=== PATIENT | female | born 1985 | race Caucasian/White ===

== ENCOUNTER 2017-12-01 03:45 | Emergency (ER) | payer BC ==
[2017-12-01] MEDS ORDERED: Ketorolac INJ* 30 MG/ML 1 ML VIAL IV PUSH ONE (04:20)
[2017-12-01] MEDS ORDERED: NS 0.9% 1000 ML* 1,000 ML IV ONE (04:20)
[2017-12-01] MEDS ORDERED: Metoclopramide IV* 5 MG/ML 2 ML VIAL IV SLOW PU ONE (04:21)
[2017-12-01] MEDS ORDERED: Morphine INJ* 4 MG/ML 1 ML SYRINGE (NEW SYRINGE VERSION) IV ONE (04:21)
[2017-12-01 05:00] LABS: ABS Basophils 0.1 10^3/ul (0-0.2); ABS Eosinophils 0.1 10^3/ul (0-0.6); ABS Lymphocytes 2.7 10^3/ul (1.0-4.8); ABS Monocytes 0.9 10^3/ul (0-0.8); ABS Neutrophils 5.9 10^3/ul (1.5-7.7); ABS Nucleated RBC 0 10^3/ul; Eosinophil % 1.2 % (0-6); Hematocrit 34 % (35-47); Hemoglobin 10.7 g/dl (12.0-16.0); Lymphocyte % 27.7 % (25-47); Mean Corpuscular HGB Conc 32 g/dl (31-36); Mean Corpuscular Hemoglobin 24 pg (27-31); Mean Corpuscular Volume 75 fL (80-97); Mean Platelet Volume 8 um3 (7.4-10.4); Nucleated Red Blood Cells % 0.1; Platelet Count 394 10^3/ul (150-450); Red Blood Count 4.45 10^6/ul (4.0-5.4); Red Cell Distribution Width 16 % (10.5-15); White Blood Count 9.8 10^3/ul (3.5-10.8)
[2017-12-01 05:12] LABS: Urine Appearance Cloudy; Urine Blood 2+ (Negative); Urine Color Yellow; Urine Ketones Negative (Negative); Urine Protein Negative (Negative); Urine Specific Gravity 1.026 (1.010-1.030); Urine Urobilinogen Negative (Negative)
[2017-12-01 05:16] LABS: EGFR Non-African American 81.3 (>60)
[2017-12-01] MEDS ORDERED: Levofloxacin TAB* 500 MG PO ONE (05:34)
[2017-12-01] MEDS ORDERED: Tamsulosin CAP* 0.4 MG PO ONE (05:34)
--- NOTE | 2017-12-01 05:47 | ED ---
Katiuska Simmons Abhishek, scribed for Marco Masterson MD on 12/01/17 at 0431 . Abdominal Pain/Female - HPI Summary HPI Summary: This patient is a 32 year old F presenting to [facility] accompanied by female friend with a chief complaint of abd pain since 129. Pt describes the pain as a LLQ that radiates to the left flank. The patient rates the pain 7/10 in severity. Symptoms aggravated by nothing. Symptoms alleviated by nothing. Patient reports vomiting. Patient denies dysuria, diarrhea and hematuria. - History of Current Complaint Chief Complaint: EDFlankPain Stated Complaint: FLANK PAIN Time Seen by Provider: 12/01/17 04:09 Hx Obtained From: Patient Onset/Duration: Sudden Onset, Lasting Hours - 12911/30/17 Timing: Constant Severity Initially: Moderate Severity Currently: Moderate Pain Intensity: 7 Pain Scale Used: 0-10 Numeric Location: Discrete At: LLQ Radiates: Yes Radiates to: Flank - Left Aggravating Factor(s): Nothing Alleviating Factor(s): Nothing Associated Signs and Symptoms: Positive: Nausea, Vomiting, Other: - Negative dysuria and hematuria. Negative: Diarrhea Allergies/Adverse Reactions: Allergies Allergy/AdvReac Type Severity Reaction Status Date / Time No Known Allergies Allergy Verified 12/01/17 03:52 PMH/Surg Hx/FS Hx/Imm Hx Endocrine/Hematology History: Denies: Hx Diabetes Cardiovascular History: Reports: Hx Hypertension Denies: Hx Cardiac Arrest, Hx Coronary Artery Disease Sensory History: Denies: Hx Legally Blind, Hx Deafness Opthamlomology History: Denies: Hx Legally Blind Infectious Disease History: No Infectious Disease History: Denies: Traveled Outside the [place] in Last 30 Days - Family History Known Family History: Negative: Cardiac Disease, Diabetes - Social History Occupation: Employed Full-time Lives: With Family Alcohol Use: Occasionally Substance Use Type: Reports: None Smoking Status (MU): Never Smoked Tobacco Review of Systems Constitutional: Negative Eyes: Negative ENT: Negative Cardiovascular: Negative Respiratory: Negative Positive: Abdominal Pain - LLQ, Vomiting, Nausea. Negative: Diarrhea Negative: dysuria, hematuria Musculoskeletal: Negative Skin: Negative Neurological: Negative Psychological: Normal All Other Systems Reviewed And Are Negative: Yes Physical Exam - Summary Physical Exam Summary: VITAL SIGNS: Reviewed. GENERAL: ~Patient is a well-developed and nourished (FEMALE) who is lying comfortable in the stretcher. Patient is not in any acute respiratory distress. HEAD AND FACE: No signs of trauma. No ecchymosis, hematomas or skull depressions. No sinus tenderness. EYES: PERRLA, EOMI x 2, No injected conjunctiva, no nystagmus. EARS: Hearing grossly intact. Ear canals and tympanic membranes are within normal limits. MOUTH: Oropharynx within normal limits. NECK: Supple, trachea is midline, no adenopathy, no JVD, no carotid bruit, no c- spine tenderness, neck with full ROM. CHEST: Symmetric, no tenderness at palpation LUNGS: Clear to auscultation bilaterally. No wheezing or crackles. CVS: Regular rate and rhythm, S1 and S2 present, no murmurs or gallops appreciated. ABDOMEN: Left mid side tenderness EXTREMITIES: FROM in all major joints, no edema, no cyanosis or clubbing. NEURO: Alert and oriented x 3. No acute neurological deficits. Speech is normal and follows commands. SKIN: Dry and warm Triage Information Reviewed: Yes Vital Signs On Initial Exam: Initial Vitals Temp Pulse Resp BP Pulse Ox 97.9 F 70 16 141/83 100 12/01/17 03:46 12/01/17 03:46 12/01/17 03:46 12/01/17 03:46 12/01/17 03:46 Vital Signs Reviewed: Yes Diagnostics - Vital Signs Vital Signs Temp Pulse Resp BP Pulse Ox 12/01/17 03:46 97.9 F 70 16 141/83 100 - Laboratory Result Diagrams: 12/01/17 04:40 12/01/17 04:40 Lab Statement: Any lab studies that have been ordered have been reviewed, and results considered in the medical decision making process. - CT CT A/P CT Interpretation Completed By: Radiologist - CT A/P reveals positive for 3 mm distal left ureteral stone at the left ureter vesicular junction which is obstructing and causing mild left hydro ureter and very mild left hydro nephrosis. There are also no obstructing left renal stones. No right urinary tract stone or obstruction. Note made of some free fluid in the pelvic cul-de- sac. Physiologic versus ruptured cyst. The remainder of the abdomen and pelvis is unremarkable. ED physician has reviewed this radiology report and agrees. Abdominal Pain Fem Course/Dx - Course Course Of Treatment: The pt is a 32 F presenting to the [facility] with a chief complaint of LLQ abd pain. The pt reports vomiting and nausea, however, denies dysuria, hematuria, and diarrhea. The pain is described to have radiated to towards the left flank and back. CT A/P was taken and reviewed. The dx will be renal colic, left ureteral stone, and UTI. The pt will be discharged home and is recommended to follow up with urologist within 2 to 3 days. - Diagnoses Provider Diagnoses: Left ureteral stone, Renal colic, UTI (urinary tract infection) Discharge - Discharge Plan Condition: Stable Disposition: ADMITTED TO [facility] Prescriptions: Levofloxacin TAB* [Levaquin TAB*] 500 mg PO DAILY #7 tab oxyCODONE/Acetamin 5/325 MG* [Percocet 5/325 TAB*] 1 tab PO Q6H PRN #14 tab MDD 4 PRN Reason: Pain Tamsulosin CAP* [Flomax CAP*] 0.4 mg PO BEDTIME #7 cap Patient Education Materials: Urinary Tract Infection in Women (ED), Renal Colic (ED), Ureteral Stones (ED) Referrals: Kinga Holbrook MD [Primary Care Provider] - Carter Saucedo MD [Medical Doctor] - (Follow up with Urologist within 2 to 3 days.) Additional Instructions: RETURN TO EMERGENCY DEPARTMENT FOR ANY NEW OR WORSENING SYMPTOMS The documentation as recorded by the Katiuska le Abhishek accurately reflects the service I personally performed and the decisions made by Aleja dias Abdul, MD.
[2017-12-01 06:28] VITALS: BP 113/84
--- NOTE | 2017-12-01 07:57 | RAD ---
INDICATION: Abdominal and left flank pain. COMPARISON: There are no prior studies available for comparison. TECHNIQUE: A CT scan of the abdomen and pelvis was performed without intravenous or oral contrast. Contiguous axial sections were obtained from the lung bases through the symphysis pubis. Images were reconstructed in the coronal and sagittal planes. FINDINGS: There is an 8 mm pulmonary nodule present posteriorly in the left lower lobe. No pleural effusion is present. The liver and spleen are within normal limits in size without significant focal abnormality on this noncontrast study. No calcified gallstones are seen. The pancreas appears to be within normal limits in size. The adrenal glands appear to be within normal limits. There is a mild enlargement of the left kidney. There is a large nonobstructing calculus in the lower pole of the left kidney measuring 1.5 x 1.0 cm in size. There is a 0.3 cm calculus at the left ureterovesical junction causing mild hydronephrosis. The aorta is normal in caliber without significant calcific plaque. No significant enlarged retroperitoneal lymph nodes are seen. The stomach, small and large bowel appear nondistended. The appendix is not well visualized. There is mild descending and sigmoid diverticulosis without evidence for diverticulitis. The uterus is anteverted and normal in size. There is a small amount of free intraperitoneal fluid in the cul-de-sac. No free intraperitoneal air is seen. There is a [id number] dorsal lumbar scoliosis. No significant focal osseous abnormality is seen. The results of this exam were discussed with the emergency department charge nurse Leydi. IMPRESSION: 1. THERE IS A 3 MM CALCULUS PRESENT AT THE LEFT URETEROVESICAL JUNCTION CAUSING MILD HYDRONEPHROSIS. 2. LARGE LEFT RENAL CALCULUS. 3. 0.8 CM LEFT LOWER LOBE PULMONARY NODULE. IF THE PATIENT HAS A HISTORY OF CANCER THEN RECOMMEND A CURRENT FOLLOW-UP CT OF THE CHEST. IF NOT THEN RECOMMEND A FOLLOW-UP CT OF THE CHEST IN 6 MONTHS TIME. 4. SMALL AMOUNT OF FREE INTRAPERITONEAL FLUID IN THE CUL-DE-SAC LIKELY INCIDENTAL.
== END 2017-12-01 06:32 | disposition short-term general hospital (02) ==
LOC: ED 03:45
DX: N13.2 Hydronephrosis with renal and ureteral calculous obstruction (principal); N39.0 Urinary tract infection, site not specified; R91.1 Solitary pulmonary nodule
CPT/HCPCS: 36415; 74176; 80053; 81003; 81015; 82150; 83690; 84702; 85025; 86140; 87086; 96361; 96374; 96375; 99283; J1885; J2270; J2765

== ENCOUNTER 2018-05-09 07:56 | Day surgery (SDC) | payer BC ==
--- NOTE | 2018-05-03 20:29 | HP ---
CC: Kinga Holbrook MD; Dr. Cain; Pat Simpson * ADMITTING HISTORY AND PHYSICAL: DATE OF ADMISSION: 05/09/18 ADMITTING DIAGNOSIS: Left renal calculus. PLANNED PROCEDURE: Left stent insertion and shockwave lithotripsy of left renal calculus. SURGEON: Julius Arias MD HISTORY OF PRESENT ILLNESS: Jocelyn Ramos is a 33-year-old lady who had been evaluated several months ago because of left flank pain. At that time, she had a small calculus in the left distal ureter, which she had passed. She was also noted to have a large calculus in the left kidney and in followup, an ultrasound was noted to have an approximately 1 cm calculus in the left kidney. She desires and is now being brought in for treatment of that left renal calculus with stent insertion and shockwave lithotripsy. PAST MEDICAL HISTORY: Significant for arthralgias. PAST SURGICAL HISTORY: Significant for appendectomy. MEDICATIONS: On admission: 1. Meloxicam 7.5 mg daily. 2. Oral contraceptive. ALLERGIES: No known drug allergies. FAMILY HISTORY: Negative for stones. SOCIAL HISTORY: Smoking history, she is a nonsmoker. REVIEW OF SYSTEMS: She is otherwise in excellent health. There is no history of diabetes mellitus or any other major systemic illness. PHYSICAL EXAMINATION GENERAL: Reveals a pleasant healthy-appearing young lady. VITAL SIGNS: Blood pressure is 132/80; pulse 75 per minute, regular, oxygen saturation 99% on room air. LUNGS: Clear bilaterally. CARDIOVASCULAR: Regular rate and rhythm. S1, S2. ABDOMEN: Soft with mild left flank tenderness. IMPRESSION: A 33-year-old lady with an approximately 1 cm left renal calculus. I discussed the procedure of shockwave lithotripsy and stent insertion in detail including possible risks of bleeding, infection, incomplete fragmentation. PLAN: Left stent insertion and shockwave lithotripsy of left renal calculus. [id number]/[facility] #: [id number] MTDD
[~2018-05-09 07:56] MED LIST: Buffered Lidocaine 0.9% SYRIN* 5 ML/SYR SYRINGE INTRADERM ONE; Famotidine IV* 10 MG/ML 2 ML (20 mg) IV ONE; Metoclopramide TAB* 10 MG PO ONE
[2018-05-09] MEDS ORDERED: cefTRIAXone(*) 2 GM ADDV.VIAL IVPB ONE (08:38)
[2018-05-09] MEDS ORDERED: Famotidine IV* 10 MG/ML 2 ML (20 mg) ONE (08:38)
[2018-05-09] MEDS ORDERED: Metoclopramide TAB* 10 MG ONE (08:38)
--- NOTE | 2018-05-09 09:47 | RAD ---
Indication: LEFT renal calculus. 4 lithotripsy. Comparison: January 20, 2018 abdomen radiograph and December 01, 2017 CT. Technique: Supine view of the abdomen. Report: Conglomerate of stones at the lower pole the LEFT kidney measuring up to 1.5 cm in total is unchanged. No suspicious calcifications visualized over the RIGHT renal fossa or along the expected course of the ureters. Multiple pelvic phleboliths noted. Tampon in place in the vagina. Unremarkable bowel gas pattern. Unremarkable soft tissue contours. IMPRESSION: #. Conglomerate of stones at the lower pole the LEFT kidney measuring up to 1.5 cm in total is unchanged.
[2018-05-09] MEDS ORDERED: Lidocaine 2% PF * 5 ML VIAL ONE (10:00)
[2018-05-09] MEDS ORDERED: Dexamethasone IV* 4 MG/ML 1 ML (4 MG) ONE (10:00)
[2018-05-09] MEDS ORDERED: Propofol* 10 MG/ML 20 ML BTL IV PUSH ONE ×2 (10:00→12:10)
[2018-05-09] MEDS ORDERED: Ondansetron INJ* 2 MG/ML VIAL ONE (10:00)
[2018-05-09] MEDS ORDERED: Ketorolac INJ* 30 MG/ML 1 ML VIAL ONE (10:00)
[2018-05-09] MEDS ORDERED: fentaNYL* 50 MCG/ML 2 ML VIAL (100 MCG VIAL) ONE ×2 (10:01→12:10)
[2018-05-09] MEDS ORDERED: Midazolam* 1 MG/ML 5 ML VIAL (5 MG) ONE (10:01)
[2018-05-09] MEDS ORDERED: KETAMINE HCL* 50 MG/ML 10 ML VIAL ONE (10:01)
[2018-05-09] MEDS ORDERED: Furosemide IV* 10 MG/ML 2 ML VIAL (20 MG) ONE ×2 (10:09→11:55)
[2018-05-09] MEDS ORDERED: Iohexol 180 (CONTRAST) 10 ML SDV IV ONE (11:12)
[2018-05-09] MEDS ORDERED: Naloxone* 0.4 MG/ML 1 ML VIAL IV PRN (11:46)
[2018-05-09] MEDS ORDERED: Ondansetron INJ* 2 MG/ML VIAL IV PRN (11:46)
[2018-05-09] MEDS ORDERED: oxyCODONE/Acetamin 5/325 MG* TAB PO PRN (11:46)
[2018-05-09] MEDS ORDERED: fentaNYL* 50 MCG/ML 2 ML VIAL (100 MCG VIAL) IV PRN (11:46)
[2018-05-09 14:12] VITALS: BP 118/76
--- NOTE | 2018-05-09 16:01 | RAD ---
INDICATION: Postoperative COMPARISON: May 09, 2018 TECHNIQUE: A single view of the abdomen is submitted. FINDINGS: Bones: There are no acute bony findings. Soft tissues: The soft tissues appear normal. The psoas margins are sharp. Bowel gas pattern: Normal Calcifications: There is left-sided nephrolithiasis, unchanged. Other: There is left ureteral stent placement. IMPRESSION: INTERVAL LEFT URETERAL STENT PLACEMENT.
--- NOTE | 2018-05-09 22:08 | OP ---
CC: Dr. Kinga Holbrook; Dr. Julius Arias* OPERATIVE REPORT: DATE OF OPERATION: 05/09/18 - [facility] DATE OF : 87 SURGEON: Julius Arias MD ANESTHESIOLOGIST: Dr. Davison. ANESTHESIA: General. PRE-OP DIAGNOSIS: Left renal calculus. POST-OP DIAGNOSIS: Left renal calculus. OPERATIVE PROCEDURE: 1. Shock-wave lithotripsy of left renal calculus. 2. Cystoscopy left retrograde and left stent insertion. OPERATIVE FINDINGS: 1. Normal-appearing bladder. 2. Fairly large about 1.2 to 1.3 cm calculus, left kidney. INDICATIONS: Jocelyn Ramos is a 33-year-old lady who was evaluated and noted to have the above-mentioned calculus in the left kidney. COMPLICATIONS: None. POSTOPERATIVE CONDITION: Stable. STENT USED: A 6-Singaporean stent left ureter. DESCRIPTION OF PROCEDURE: After induction of general anesthesia, the patient was placed on the lithotripsy table in supine position. The calculus in the area of the left renal pelvis was identified using fluoroscopy. Shock-wave lithotripsy was commenced at a rate of 60 shocks per minute. Periodic imaging revealed good localization and fragmentation and a total of 2400 shocks were administered. Next, the patient was placed in dorsal lithotomy position. Cystoscopy was performed. The bladder appeared normal. A guidewire was introduced into the left ureter. Left retrograde pyelogram revealed mild fullness of the left collecting system. A 6-Singaporean stent was introduced and positioned under fluoroscopy with good proximal and distal positioning obtained. The bladder was emptied. The patient tolerated the procedure satisfactorily and was transferred back to recovery area in stable condition. [id number]/[facility] #: [id number] [facility]
== END 2018-05-09 14:26 | disposition home or self-care (01) ==
LOC: OR 07:56
PROVIDERS: ATTEND Urology
DX: N20.0 Calculus of kidney (principal); M25.50 Pain in unspecified joint
CPT/HCPCS: 74018; 81025; A9270-GY; C1876; J0696; J1100; J1885; J1940; J2250; J2405; J2704; J3010

== ENCOUNTER 2018-09-12 10:32 | Day surgery (SDC) | payer BC ==
--- NOTE | 2018-08-30 06:27 | HP ---
CC: Dr. Cain; Dr. Holbrook * ADMITTING HISTORY AND PHYSICAL: DATE OF ADMISSION: 09/12/18 ADMITTING DIAGNOSIS: Left renal calculus. PLANNED PROCEDURE: Shock-wave lithotripsy of left renal calculus. SURGEON: Julius Arias MD HISTORY OF PRESENT ILLNESS: Jocelyn Ramos is a 33-year-old lady who had originally been evaluated for a large left renal calculus and had undergone shock- wave lithotripsy in April 2018. She had noted to have only partial fragmentation and has not been able to pass any of the fragments and is now being brought in for repeat shock-wave lithotripsy in an effort to try and completely fragment the calculus and achieve stone-free situation. PAST MEDICAL HISTORY: Significant for arthritis. PAST SURGICAL HISTORY: Significant for left stent insertion and shock-wave lithotripsy in April 2018 and prior history of appendectomy. MEDICATIONS: On admission: 1. Meloxicam 7.5 mg once a day. 2. Metformin 500 mg twice a daily. 3. Apri (oral contraceptives) once a day. ALLERGIES: No known drug allergies. SOCIAL HISTORY: She is a nonsmoker. FAMILY HISTORY: Negative for stones. REVIEW OF SYSTEMS: She is otherwise in excellent health. There is no history of diabetes mellitus or any other major systemic illness. PHYSICAL EXAMINATION GENERAL: Reveals a pleasant healthy-appearing young lady. VITAL SIGNS: Blood pressure is 104/70, pulse 88 per minute regular, oxygen saturation 99% on room air. LUNGS: Clear bilaterally. CARDIOVASCULAR: Regular rate and rhythm. S1, S2. ABDOMEN: Soft with mild left flank tenderness. IMPRESSION: A 33-year-old lady with large left renal calculus who previously had lithotripsy about 4 months ago with partial fragmentation. Planned procedure is shock-wave lithotripsy of left renal calculus. I have discussed the procedure in detail including possible risk of bleeding, infection, incomplete fragmentation, and obstructing fragments with the patient who appears to understand and wishes to proceed as plan. [id number]/[facility] #: [id number] MTDD
[~2018-09-12 10:32] MED LIST changes: -Famotidine IV* 10 MG/ML 2 ML (20 mg) IV ONE; +Lactated Ringers 1000 ML Bag* 1,000 ML IV SCH; -Metoclopramide TAB* 10 MG PO ONE; +Sodium Citrate/Citric Acid* 15 ML UDC PO ONE
[2018-09-12] MEDS ORDERED: Sodium Citrate/Citric Acid* 15 ML UDC ONE (11:36)
[2018-09-12] MEDS ORDERED: cefTRIAXone(*) 2 GM ADDV.VIAL IVPB ONE (11:36)
[2018-09-12] MEDS ORDERED: Propofol* 10 MG/ML 20 ML BTL ONE (13:02)
[2018-09-12] MEDS ORDERED: Lidocaine 2% PF * 5 ML VIAL ONE (13:03)
[2018-09-12] MEDS ORDERED: Furosemide IV* 10 MG/ML 2 ML VIAL (20 MG) ONE (13:10)
[2018-09-12] MEDS ORDERED: Naloxone* 0.4 MG/ML 1 ML VIAL IV PRN (13:11)
[2018-09-12] MEDS ORDERED: fentaNYL* 50 MCG/ML 2 ML VIAL (100 MCG VIAL) IV PRN (13:11)
[2018-09-12] MEDS ORDERED: Ondansetron INJ* 2 MG/ML VIAL IV PRN (13:11)
[2018-09-12 14:18] VITALS: BP 113/73
--- NOTE | 2018-09-12 14:34 | OP ---
CC: Dr. Holbrook; Dr. Cain * DATE OF OPERATION: 09/12/18 - [facility] DATE OF : 87. SURGEON: Julius Arias MD ANESTHESIOLOGIST: Dr. Gray. ANESTHESIA: General. PRE-OP DIAGNOSIS: Left renal calculus. POST-OP DIAGNOSIS: Left renal calculus. OPERATIVE PROCEDURE: Shockwave lithotripsy of left renal calculus. COMPLICATIONS: None. INDICATIONS: Jocelyn Ramos is a 33-year-old lady who had originally undergone treatment for a large left renal calculus. She was noted to have partial fragmentation and is now being brought in for followup lithotripsy to try to completely fragment the calculus. POSTOPERATIVE CONDITION: Stable. DESCRIPTION OF PROCEDURE: After induction of general anesthesia, the patient was placed on the lithotripsy table in supine position. There appeared to be a cluster of fragments in the mid to lower pole area of the left kidney which were localized using fluoroscopy. Shockwave lithotripsy was commenced at a rate of 60 shocks per minute. After the initial 300 shocks, there was a pause in lithotripsy for several minutes in an effort to minimize any potential trauma to the kidney. Lithotripsy was then resumed and periodic imaging revealed good localization and fragmentation. A total of 2000 shocks were administered. The patient tolerated the procedure satisfactorily and was transferred back to the recovery area in stable condition. [id number]/[facility] #: [id number] MTDD
== END 2018-09-12 14:50 | disposition home or self-care (01) ==
LOC: OR 10:32
PROVIDERS: ATTEND Urology
DX: N20.0 Calculus of kidney (principal); Z68.32 Body mass index [BMI] 32.0-32.9, adult; M19.90 Unspecified osteoarthritis, unspecified site; E06.3 Autoimmune thyroiditis
CPT/HCPCS: 74018; 81025; A9270-GY; J0696; J1940; J2704

== ENCOUNTER 2023-08-05 13:11 | Observation (INO) ==
[2023-08-05 13:40] LABS: ABS Eosinophils 0.2 10^3/uL (0.0-0.5); ABS Lymphocytes 1.9 10^3/uL (1.0-4.8); ABS Monocytes 0.6 10^3/uL (0.0-0.9); ABS Neutrophils 5.8 10^3/uL (1.5-7.6); ABS Nucleated RBC 0.01 10^3/ul; Eosinophil % 1.8 %; Hematocrit 41.5 % (35-45); Hemoglobin 13.9 g/dL (11.5-14.3); Mean Corpuscular Hemoglobin 30.2 pg (27-33); Mean Corpuscular Hgb Conc 33.4 g/dL (31-36); Mean Corpuscular Volume 90.3 fL (80-97); Mean Platelet Volume 7.4 fL (7.5-11.2); Nucleated Red Blood Cells % 0.1 %/100WBC (0.0-0.8); Platelet Count 380 10^3/uL (150-450); Red Cell Distribution Width 13.4 % (12-17); White Blood Count 8.4 10^3/uL (3.8-11.8)
[2023-08-05 14:04] LABS: High Sens Troponin Baseline < 3 pg/mL (<15)
[2023-08-05 14:08] LABS: INR 1.09 (0.83-1.13)
[2023-08-05 14:15] LABS: ALT 26 U/L (7-52); AST 19 U/L (13-39); Albumin 4.4 g/dL (3.2-5.2); Albumin/Globulin Ratio 1.4 (1-3); Alkaline Phosphatase 68 U/L (35-149); Anion Gap 8 mmol/L (2-16); Blood Urea Nitrogen 9 mg/dL (6-24); CO2 Carbon Dioxide 24 mmol/L (22-32); Calcium 9.2 mg/dL (8.6-10.3); Chloride 104 mmol/L (101-111); Creatinine, Serum 0.99 mg/dL (0.51-0.95); Globulin 3.2 g/dL (2-4); Glucose 139 mg/dL (70-100); Sodium 136 mmol/L (135-145); Total Bilirubin 0.4 mg/dL (0.2-1.0); Total Protein 7.6 g/dL (6.4-8.9); eGFR CKD-EPI 75.3 (>60)
[2023-08-05 15:08] LABS: High Sensitivity Troponin 1 Hr < 3 pg/mL (<15)
[2023-08-05 16:07] LABS: Magnesium 1.9 mg/dL (1.9-2.7)
[2023-08-05 17:16] LABS: HCG Pregnancy < 0.60 mIU/mL
[2023-08-06] MEDS ORDERED: RIMEGEPANT SULFATE 75 MG ODT TAB (NF) PO PRN (07:27)
[2023-08-06] MEDS ORDERED: NALTREXONE 3 MG PO SCH (09:00)
[2023-08-06 14:13] VITALS: BP 102/48
[2023-08-06] MEDS ORDERED: Cholecalciferol (VIT D3) 1,000 unit TAB PO SCH (21:00)
== END 2023-08-06 17:14 | disposition home or self-care (01) ==
LOC: ED 13:11 → EDHOLD 13:11 → SUATTDRO 21:23 → MEDTELE 08-06 01:38
PROVIDERS: ADMIT Internal Medicine; ATTEND Student in an Organized Health Care Education/Training Program